=== PATIENT | male | born 1970 ===

== ENCOUNTER 2023-12-29 16:16 | Emergency (ER) | payer OTHER ==
[~2023-12-29] VITALS: Ht 177.8 cm; Wt 74.8 kg
[2023-12-29] MEDS ORDERED: Ketorolac Tromethamine 15mg Vial IM ONE (17:20)
[2023-12-29] MEDS ORDERED: LIDO700A20 TOP (17:40)
== END 2023-12-29 17:45 | disposition home or self-care (01) ==
LOC: ER 16:16 → EDBD 16:16 → ER 17:45
DX: S76.911A Strain of unspecified muscles, fascia and tendons at thigh level, right thigh, initial encounter (principal); S73.101A Unspecified sprain of right hip, initial encounter; W01.10XA Fall on same level from slipping, tripping and stumbling with subsequent striking against unspecified object, initial encounter
CPT/HCPCS: 73552; 96372; 99283-25; J1885